=== PATIENT | female | born 1980 | race Caucasian/White ===

== ENCOUNTER 2019-03-23 20:07 | Emergency (ER) | payer OTHER ==
[2019-03-23] MEDS ORDERED: KETOROLAC TROMETHAMINE 60 MG/2 ML VIAL IM ONE (20:22)
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
[2019-03-23 20:24] VITALS: PULSE 71; TEMP 98.8; BMI 36.6
[2019-03-23] MEDS ORDERED: KETOROLAC TROMETHAMINE 60 MG/2 ML VIAL ONE (20:51)
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
[2019-03-23] MEDS ORDERED: LABETALOL HCL 200 MG TABLET (FP) PO ONE (21:03)
[2019-03-23] MEDS ORDERED: LABETALOL HCL 100 MG TABLET (FP) ONE (21:08)
[2019-03-23 21:39] VITALS: BP 138/95
== END 2019-03-23 21:42 | disposition home or self-care (01) ==
LOC: JERFT 20:07
PROC: 3E0233Z Introduction of Anti-inflammatory into Muscle, Percutaneous Approach (ICD-10-PCS; principal; 2019-03-23)
DX: S16.1XXA Strain of muscle, fascia and tendon at neck level, initial encounter (principal); V43.62XA Car passenger injured in collision with other type car in traffic accident, initial encounter; Y92.414 Local residential or business street as the place of occurrence of the external cause; Y93.89 Activity, other specified; Y99.8 Other external cause status; I10 Essential (primary) hypertension; E28.2 Polycystic ovarian syndrome; F41.9 Anxiety disorder, unspecified
CPT/HCPCS: 99282-25

== ENCOUNTER 2021-01-17 14:32 | Emergency (ER) | payer OTHER ==
[2021-01-17 15:01] VITALS: PULSE 85; TEMP 98.1; BMI 36.3
[2021-01-17] MEDS ORDERED: ACETAMINOPHEN 325 MG TABLET (FP) PO ONE (15:39)
[2021-01-17] MEDS ORDERED: SODIUM CHLORIDE 1,000 ML IV STA (15:40)
[2021-01-17] MEDS ORDERED: ACETAMINOPHEN 325 MG TABLET (FP) ONE (16:10)
[2021-01-17 16:18] LABS: BASO % 0.4 % (0-2.0); EOS % 0.3 % (0-4.5); HEMOGLOBIN 15.6 GM/dL (10.7-15.3); LYMPH % 22.5 % (8-40); MCH 30.1 pg (25.7-33.7); MCHC 34.7 g/dl (32.0-36.0); MEAN CELL VOLUME 86.8 fl (80-96); MEAN PLT VOLUME 9.1 fl (7.5-11.1); MONO % 7.5 % (3.8-10.2); NEUT % 69.3 % (42.8-82.8); PLATELET COUNT 355 10^3/uL (134-434); RBC 5.19 M/mm3 (3.60-5.2); RDW 13.6 % (11.6-15.6)
[2021-01-17 16:36] LABS: CALCIUM 9.2 mg/dL (8.5-10.1)
[2021-01-17 16:37] LABS: ALBUMIN 4.1 g/dl (3.4-5.0); BLOOD UREA NITROGEN 15.8 mg/dL (7-18)
[2021-01-17 16:40] LABS: CREATININE 0.7 mg/dL (0.55-1.3)
[2021-01-17 16:41] LABS: BILIRUBIN,TOTAL 0.9 mg/dL (0.2-1)
[2021-01-17 16:42] LABS: TOT PROT 7.8 g/dl (6.4-8.2)
[2021-01-17 16:53] VITALS: BP 144/90
== END 2021-01-17 17:25 | disposition home or self-care (01) ==
LOC: JER 14:32
PROC: 3E0337Z Introduction of Electrolytic and Water Balance Substance into Peripheral Vein, Percutaneous Approach (ICD-10-PCS; principal; 2021-01-17)
DX: R42 Dizziness and giddiness (principal)
CPT/HCPCS: 36415; 80053; 84703; 85025; 93005; 93010; 99284-25

== ENCOUNTER 2022-07-26 04:54 | Observation (INO) | payer OTHER ==
[2022-07-26 05:09] VITALS: BMI 39.1
[2022-07-26] MEDS ORDERED: FAMOTIDINE 20 MG/50 ML IVPB 20 MG/50 ML MG IVPB ONE (05:35)
[2022-07-26] MEDS ORDERED: ACETAMINOPHEN 1000 MG/100 ML BAG IVPB ONE (05:35)
[2022-07-26] MEDS ORDERED: ONDANSETRON 4 MG/2 ML VIAL IVPB ONE (05:42)
[2022-07-26] MEDS ORDERED: SODIUM CHLORIDE 0.9% 500 ML INFUS.BAG IV ONE (05:42)
[2022-07-26] MEDS ORDERED: MAG HYDROX/AL HYDROX/SIMETH 30 ML UNIT-DOSE CUP PO ONE (05:42)
[2022-07-26] MEDS ORDERED: ACETAMINOPHEN INJECTION 100 ML IVPB ONE (05:51)
[2022-07-26] MEDS ORDERED: FAMOTIDINE 10 MG/ML VIAL IVPB ONE (05:51)
[2022-07-26] MEDS ORDERED: ONDANSETRON 4 MG/2 ML VIAL ONE (05:51)
[2022-07-26] MEDS ORDERED: MAG HYDROX/AL HYDROX/SIMETH 30 ML UNIT-DOSE CUP ONE (05:51)
[2022-07-26 05:56] LABS: BASO % 0.6 % (0-2.0); EOS % 1.2 % (0-4.5); HEMATOCRIT 46.5 % (32.4-45.2); HEMOGLOBIN 15.6 GM/dL (10.7-15.3); LYMPH % 22.9 % (8-40); MCH 28.7 pg (25.7-33.7); MCHC 33.4 g/dl (32.0-36.0); MEAN PLT VOLUME 8.6 fl (7.5-11.1); MONO % 7.2 % (3.8-10.2); NEUT % 68.1 % (42.8-82.8); PLATELET COUNT 343 10^3/uL (134-434); RBC 5.41 M/mm3 (3.60-5.2); WHITE BLOOD COUNT 8.8 K/mm3 (4.0-10.0)
[2022-07-26 06:13] LABS: CALCIUM 9.2 mg/dL (8.5-10.1)
[2022-07-26 06:14] LABS: ALBUMIN 3.9 g/dl (3.4-5.0); BLOOD UREA NITROGEN 13.6 mg/dL (7-18); MAGNESIUM 1.9 mg/dL (1.8-2.4)
[2022-07-26 06:17] LABS: CREATININE 0.8 mg/dL (0.55-1.3); PHOSPHOROUS 3.3 mg/dL (2.5-4.9)
[2022-07-26 06:18] LABS: BILIRUBIN,TOTAL 0.9 mg/dL (0.2-1); TOT PROT 7.4 g/dl (6.4-8.2)
[2022-07-26] MEDS ORDERED: ASPIRIN 81 MG CHEWABLE TABLETS PO ONE (06:40)
[2022-07-26] MEDS ORDERED: ASPIRIN 81 MG CHEWABLE TABLETS ONE (06:47)
[2022-07-26 08:44] LABS: PH,URINE 6.5 (5.0-8.0); URINE APPEARANCE CLEAR; URINE BILIRUBIN NEGATIVE (NEGATIVE); URINE COLOR YELLOW; URINE GLUCOSE (UA) NEGATIVE (NEGATIVE); URINE KETONE NEGATIVE (NEGATIVE); URINE LEUK ESTERASE NEGATIVE (NEGATIVE); URINE NITRITE NEGATIVE (NEGATIVE); URINE PROTEIN NEGATIVE (NEGATIVE); URINE UROBILINOGEN 0.2 mg/dL (0.2-1.0)
[2022-07-26 08:47] LABS: HCG,QUALITATIVE URINE Negative
[2022-07-26 09:11] VITALS: RESP 18
[2022-07-26 09:16] LABS: BLOOD UREA NITROGEN 11.4 mg/dL (7-18)
[2022-07-26 09:19] LABS: CREATININE 0.6 mg/dL (0.55-1.3)
[2022-07-26] MEDS ORDERED: ENOXAPARIN NA (PORCINE) 60 MG/0.6 ML DISP.SYRIN SQ SCH (10:00)
[2022-07-26] MEDS ORDERED: VALSARTAN 160 MG TABLET PO SCH (10:00)
[2022-07-26] MEDS ORDERED: amLODIPine BESYLATE 5 MG TABLET (FP) PO SCH (10:00)
[2022-07-26 14:55] VITALS: BP 127/75; PULSE 94; TEMP 98.4
[2022-07-27] MEDS ORDERED: PANTOPRAZOLE 40 MG TABLET PO SCH (10:00)
== END 2022-07-26 17:17 | disposition home or self-care (01) ==
LOC: JER 04:54 → JERBED 06:27 → J4W 08:28
PROVIDERS: ADMIT Internal Medicine; ATTEND Internal Medicine
PROC: 3E023GC Introduction of Other Therapeutic Substance into Muscle, Percutaneous Approach (ICD-10-PCS; principal; 2022-07-26)
PROC: 3E033GC Introduction of Other Therapeutic Substance into Peripheral Vein, Percutaneous Approach (ICD-10-PCS; 2022-07-26)
PROC: 3E0337Z Introduction of Electrolytic and Water Balance Substance into Peripheral Vein, Percutaneous Approach (ICD-10-PCS; 2022-07-26)
DX: R07.9 Chest pain, unspecified (principal); E28.2 Polycystic ovarian syndrome; I82.90 Acute embolism and thrombosis of unspecified vein; G47.33 Obstructive sleep apnea (adult) (pediatric); I10 Essential (primary) hypertension; E66.8 Other obesity; Z68.39 Body mass index [BMI] 39.0-39.9, adult
CPT/HCPCS: 0241U-QW; 36415; 71046-TC-FY; 73030-TC-LT-FY; 80048; 80053; 80061; 81003; 83036; 83690; 83735; 84100; 84443; 84484; 84703; 85025; 93005; 93010; 93017; 93018; 93306-TC; 99285-25; G0378

== ENCOUNTER 2025-03-16 22:48 | Emergency (ER) | payer OTHER ==
[2025-03-16 22:53] VITALS: TEMP 97; BMI 36.4
[2025-03-16] MEDS ORDERED: ACETAMINOPHEN INJECTION 100 ML ONE (23:25)
[2025-03-16] MEDS ORDERED: ONDANSETRON 4 MG/2 ML VIAL ONE (23:26)
[2025-03-16] MEDS ORDERED: FAMOTIDINE 10 MG/ML VIAL IVPB ONE (23:26)
[2025-03-16 23:44] LABS: MCHC 34.1 g/dl (32.2-35.5); MEAN CELL VOLUME 86.0 fl (79.4-94.8); MEAN PLT VOLUME 10.4 fl (9.4-12.3); RDW 12.8 % (12.2-17.1)
[2025-03-16] MEDS: ACETAMINOPHEN 1000 MG/100 ML BAG IVPB ONE (23:47)
[2025-03-16] MEDS: LACTATED RINGERS SOLUTION 1000 ML INFUS.BAG IV ONE (23:51)
[2025-03-16] MEDS: ONDANSETRON 4 MG/2 ML VIAL IVPUSH ONE (23:51)
[2025-03-16] MEDS: FAMOTIDINE 20 MG/50 ML IVPB 20 MG/50 ML MG IVPB ONE (23:52)
[2025-03-17] LABS: GLUCOSE,RANDOM 110.0 mg/dL (74-106); TOT PROT 7.8 g/dl (6.4-8.2)
[2025-03-17 00:01] LABS: CO2 21.0 mmol/L (21-32)
[2025-03-17 00:03] LABS: ALK PHOS 54.0 U/L (40-150)
[2025-03-17 00:06] LABS: CREATININE 0.77 mg/dL (0.55-1.3); SGOT/AST 21.0 U/L (5-34); SGPT/ALT 11.0 U/L (0-55)
[2025-03-17] MEDS ORDERED: MAGNESIUM SULFATE IN WATER 2 GM/50 ML IVPB IVPB ONE (00:18)
[2025-03-17] MEDS: MAGNESIUM SULFATE IN WATER 2 GM/50 ML IVPB IVPB ONE (00:53)
[2025-03-17] MEDS: LACTATED RINGERS SOLUTION 1000 ML INFUS.BAG IV ONE (00:53)
[2025-03-17 02:38] VITALS: BP 114/72; PULSE 95; RESP 16
== END 2025-03-17 02:39 | disposition home or self-care (01) ==
LOC: JER 22:48
PROC: 3E033GC Introduction of Other Therapeutic Substance into Peripheral Vein, Percutaneous Approach (ICD-10-PCS; principal; 2025-03-16)
PROC: 3E033GC Introduction of Other Therapeutic Substance into Peripheral Vein, Percutaneous Approach (ICD-10-PCS; 2025-03-16)
PROC: 3E033NZ Introduction of Analgesics, Hypnotics, Sedatives into Peripheral Vein, Percutaneous Approach (ICD-10-PCS; 2025-03-16)
PROC: 3E033GC Introduction of Other Therapeutic Substance into Peripheral Vein, Percutaneous Approach (ICD-10-PCS; 2025-03-17)
DX: R55 Syncope and collapse (principal); R11.2 Nausea with vomiting, unspecified; R19.7 Diarrhea, unspecified; R42 Dizziness and giddiness; R10.13 Epigastric pain; R53.1 Weakness; R00.0 Tachycardia, unspecified; S80.211A Abrasion, right knee, initial encounter; W01.198A Fall on same level from slipping, tripping and stumbling with subsequent striking against other object, initial encounter; Y92.002 Bathroom of unspecified non-institutional (private) residence as the place of occurrence of the external cause
CPT/HCPCS: 36415; 80053; 83690; 83735; 84703; 85025; 87637-QW; 93005; 93010; 99284-25